=== PATIENT | female | born 1990 | race Asian ===

== ENCOUNTER → 2022-12-22 13:14 | Outpatient (CLI) | payer OTHER, SELFPAY ==
[2022-12-22 14:24] LABS: HCG Quantitative /Beta subunit 412.7 mIU/mL
== END ==
PROVIDERS: Referring Provider Obstetrics & Gynecology; Visit Provider Obstetrics & Gynecology
DX: O00.90 Unspecified ectopic pregnancy without intrauterine pregnancy (principal); N96 Recurrent pregnancy loss
CPT/HCPCS: 36415; 84144; 84702

== ENCOUNTER → 2022-12-24 14:56 | Outpatient (CLI) | payer OTHER, SELFPAY ==
[2022-12-24 16:11] LABS: HCG Quantitative /Beta subunit 921.7 mIU/mL
== END ==
PROVIDERS: Referring Provider Obstetrics & Gynecology; Visit Provider Obstetrics & Gynecology
DX: Z34.81 Encounter for supervision of other normal pregnancy, first trimester (principal); N96 Recurrent pregnancy loss
CPT/HCPCS: 36415; 84702

== ENCOUNTER → 2023-02-12 10:34 | Outpatient (CLI) | payer OTHER, SELFPAY ==
[2023-02-12 11:32] LABS: Add Manual Diff / Slide Review NO; Basophils Absolute Auto 0 /uL (0-100); Basophils Percent Auto 0.4 % (0-2); Eosinophils Absolute Auto 0 /uL (0-450); Eosinophils Percent Auto 0.5 % (2-4); Hematocrit 38.6 % (36-46); Hemoglobin 13.1 g/dL (12.0-16.0); Lymphocytes Absolute Auto 2100 /uL (1100-4500); Lymphocytes Percent Auto 26.1 % (25-40); Mean Corpuscular Hemoglobin 29.9 PG (26-34); Monocytes Absolute Auto 600 /uL (0-900); Neutrophils Absolute Auto 5400 /uL (1500-7000); Platelet Count 216 X10^3/uL (150-400); Red Blood Cell Count 4.38 X10^6/uL (4.0-5.2); White Blood Cell Count 8.2 X10^3/uL (4.5-11.0)
[2023-02-12 11:47] LABS: Alanine Aminotransferase 14 IU/L (<35); Albumin 4.4 g/dL (3.5-5.0); Albumin Globulin Ratio 1.3 (1.0-2.8); Alkaline Phosphatase 36 U/L (38-126); Aspartate Aminotransferase 18 IU/L (14-36); BUN Creatinine Ratio 14.6 (6-22); Bilirubin Total 0.4 mg/dL (0.2-1.3); Bilirubin Unconjugated 0.2 mg/dL (0.0-1.1); Blood Urea Nitrogen 6 mg/dL (7-17); Calcium 9.3 mg/dL (8.4-10.2); Carbon Dioxide 24 mmol/L (22-32); Chloride 101 mmol/L (98-107); Estimated Glomerular Filt Rate > 60 mL/min (>60); Globulin 3.5 g/dL (1.7-4.1); Glucose 80 mg/dL (70-100); HEMOLYSIS < 15 (0-50); Potassium 4.3 mmol/L (3.4-5.1); Sodium 135 mmol/L (137-145); Total Protein 7.9 g/dL (6.3-8.2)
[2023-02-12 15:55] LABS: Hep C Virus Ab w/Reflex Quant NEGATIVE s/c (NEGATIVE); Hepatitis B Surface Antigen NEGATIVE s/c (NEGATIVE)
[2023-02-12 15:56] LABS: HIV 1 & 2 Ab/Ag 4th Gen Combo NEGATIVE (NEGATIVE); Rubella Antibody IgG 23.6 IU/mL (>15)
[2023-02-13 08:36] LABS: RPR Screen Non Reactive (Non Reactive); Varicella IgG Antibody 700 index (Immune >165)
[2023-02-17 14:22] LABS: QuantiFERON Mitogen Value >10.00 IU/mL (.); QuantiFERON Nil Value 0.03 IU/mL (.); QuantiFERON TB Gold Plus Negative (Negative); QuantiFERON TB1 Ag Value 0.04 IU/mL (.); QuantiFERON TB2 Ag Value 0.03 IU/mL (.)
== END ==
PROVIDERS: Internal Medicine; Referring Provider Obstetrics & Gynecology; Visit Provider Obstetrics & Gynecology
DX: Z34.81 Encounter for supervision of other normal pregnancy, first trimester (principal); L40.0 Psoriasis vulgaris
CPT/HCPCS: 36415; 80048; 80055; 80076; 86480; 86787; 86803; 86850; 86900; 86901; 87086; 87389

== ENCOUNTER 2023-02-19 09:59 | Emergency (ER) | payer OTHER, SELFPAY ==
[2023-02-19 10:04] VITALS: BP 103/67; PULSE 74; RESP 15; TEMP 36.8; O2SAT 99; BMI 21.1
[2023-02-19] MEDS: ONDANSETRON 4 MG ODT SL (10:11)
[2023-02-19] MEDS: SODIUM CHLORIDE 0.9% 1,000 ML 1000 ML IV (12:43)
[2023-02-19 12:51] VITALS: BP 116/67; PULSE 84; RESP 18; O2SAT 99
--- NOTE | 2023-02-19 13:01 | ED_ITS ---
HPI - Nausea/Vomiting/Diarrhea General Chief complaint: Nausea/Vomiting/Diarrhea Stated complaint: throwing up for 4 hrs 13 weeks preg. Time Seen by Provider: 02/19/23 12:19 Source: patient Mode of arrival: Ambulatory History of Present Illness HPI Narrative: 32-year-old female 13 weeks presents with concern for persistent nausea and vomiting for 4 hours this morning beginning around 8:00 a.m. when she woke up. Patient states that her daughter and her have had similar symptoms recently, her daughter became sick at 3:00 a.m. 2 nights ago and said had to stay home from school but her symptoms resolved, her became sick yesterday and also had vomiting and was unwell. She was feeling fine until this morning when she woke up. She states that her has been going well, she has seen Dr. Lorenzo twice and has had a normal ultrasound recently. She states she is not having abdominal pain but is having a little bit of discomfort in the middle of her belly which she believes is associated with her nausea and the vomiting she was doing this morning. Patient states her last bowel movement was yesterday which was normal for her although she thinks that she is beginning to start getting constipation. She states she did have a few weeks of fairly significant morning sickness but this largely resolved about 1 week ago, she effectively treated this with B vitamins and Unisom. She states prior to this morning she was feeling fine denies fevers, chills, dysuria, abdominal pain, flank pain, constipation or diarrhea, also denies dizziness, lightheadedness, chest pain, palpitations or any other symptoms. Related Data Home Medications Medication Instructions Recorded Confirmed prenat.vits,rhonda,[id number] 1 tab PO DAILY 12/22/22 01/14/23 Previous Rx's Medication Instructions Recorded progesterone micronized 200 mg 200 mg PO DAILY 8 weeks #30 caps 12/22/22 capsule (Prometrium) ondansetron 4 mg disintegrating 4 mg PO Q8H PRN nausea and 02/19/23 tablet vomiting #6 tabs Allergies Allergy/AdvReac Type Severity Reaction Status Date / Time No Known Drug Allergies Allergy Verified 02/19/23 10:04 Review of Systems Review of Systems Narrative: See HPI Patient History Medical History Bacterial vaginosis Ectopic labor Prolonged labor Surgical History H/O unilateral salpingectomy [place] teeth extracted Family History Family/Other Premature delivery Mother Family estrangement Father Psoriasis Family/Other Psoriasis Grandmother Dementia Social History marital status: number of children: 1 household members: spouse and children lives independently: Yes caregiver/support person: Yes housing: house pets and animals: Yes (2 dogs) education level: college occupational status: employed current occupational exposures/hazards: No special claudia needs: No travel history: recent seatbelt use: always water heater temp set < 120 deg: Yes working smoke detector in home: Yes fire extinguisher in home: Yes carbon monox detector in home: Yes firearms in home: No do you feel safe at home: Yes Smoking Status: Never smoker second hand exposure: No alcohol intake: former substance use type: marijuana during the past year weight has: remained stable well-balanced diet: daily or most days daily servings fruits/ve or more times/day caffeine: Yes (1 cup/day) Type(s) of exercise: walking Smoking Status: Never smoker alcohol intake frequency: holidays/special occasions only Substance Use Type: does not use Exam Narrative Exam Narrative: GENERAL: 32 year old patient appears stated age. Well-developed patient, in mild distress. HEAD: Atraumatic. Normocephalic. EYES: Pupils equal round and reactive. Extraocular motions intact. No scleral icterus. No injection or drainage. ENT: Nose without bleeding, purulent drainage. Airway patent. NECK: Trachea midline. Non tender CARDIOVASCULAR: Regular rate and rhythm without murmurs, gallops, or rubs. RESPIRATORY: Clear to auscultation. Breath sounds equal bilaterally. No wheezes, rales, or rhonchi. GASTROINTESTINAL: Abdomen soft, slight discomfort with palpation over the epigastric and periumbilical region, otherwise non-tender, nondistended, negative McBurney's point tenderness, negative Rovsing, negative Ramos's sign. EXTREMITIES: No edema or joint tenderness. BACK: Nontender without deformity or crepitance. No flank tenderness. NEURO: AOx3. SKIN: No rash or erythema of visible areas Initial Vital Signs Initial Vital Signs: Vital Signs Temperature 98.2 F 02/19/23 10:04 Pulse Rate 74 02/19/23 10:04 Respiratory Rate 15 02/19/23 10:04 Blood Pressure 103/67 02/19/23 10:04 Pulse Oximetry 99 02/19/23 10:04 Oxygen Delivery Method Room Air 02/19/23 10:04 Course Course Course Narrative: Patient's heart tones were assessed by Doppler and found to be 150 beats per minute Orders Ordered: Discontinued Medications Sodium Chloride (Normal Saline 0.9%) 1,000 mls @ 1,000 mls/hr IV BOLUS ONE Stop: 02/19/23 13:34 Last Admin: 02/19/23 12:43 Dose: 1,000 mls/hr Documented By: CHARLETTE Ondansetron HCl (Ondansetron 4 Mg Odt) 4 mg SL NOW ONE Stop: 02/19/23 10:09 Last Admin: 02/19/23 10:11 Dose: 4 mg Documented By: ADAIR Vital Signs Vital signs: Vital Signs - 8 hr 02/19/23 10:04 02/19/23 12:51 02/19/23 14:20 Temperature 98.2 F Pulse Rate 74 84 79 Respiratory Rate 15 18 Blood Pressure 103/67 116/67 95/54 L Pulse Oximetry 99 99 97 Oxygen Delivery Method Room Air Room Air Room Air MDM - Nausea/Vomiting/Diarrhea Differential Diagnosis Differential diagnosis: Likely food poisoning, gastroenteritis and other (Viral illness, nausea and vomiting of ) Medical Records Attestation: I reviewed the patient's medical records. Lab Data Attestation: I reviewed the patient's lab results. 02/19/23 13:07 02/19/23 13:07 Labs: Lab Results 02/19/23 02/19/23 Range/Units 13:07 13:07 WBC 11.4 H (4.5-11.0) X10^3/uL RBC 4.23 (4.0-5.2) X10^6/uL Hgb 12.5 (12.0-16.0) g/dL Hct 37.4 (36-46) % MCV 88.4 (80-100) fL MCH 29.7 (26-34) PG MCHC 33.5 (30-36) % RDW 14.2 (11.6-14.8) % Plt Count 216 (150-400) X10^3/uL Neut % (Auto) 88.1 H (50-75) % Lymph % (Auto) 6.8 L (25-40) % [place] % (Auto) 4.4 (3-14) % Eos % (Auto) 0.4 L (2-4) % Baso % (Auto) 0.3 (0-2) % Neut # (Auto) 92439 H (7977-2651) /uL Lymph # (Auto) 800 L (8129-1257) /uL [place] # (Auto) 500 (0-900) /uL Eos # (Auto) 0 (0-450) /uL Baso # (Auto) 0 (0-100) /uL Sodium 135 L (137-145) mmol/L Potassium 3.9 (3.4-5.1) mmol/L Chloride 102 (98-107) mmol/L Carbon Dioxide 25 (22-32) mmol/L BUN 8 (7-17) mg/dL Creatinine 0.44 L (0.52-1.04) mg/dL Estimated GFR > 60 (>60) mL/min BUN/Creatinine Ratio 18.2 (6-22) Glucose 80 (70-100) mg/dL Calcium 8.4 (8.4-10.2) mg/dL Total Bilirubin 0.5 (0.2-1.3) mg/dL AST 28 (14-36) IU/L ALT 21 (<35) IU/L Alkaline Phosphatase 38 (38-126) U/L Total Protein 7.4 (6.3-8.2) g/dL Albumin 4.1 (3.5-5.0) g/dL Globulin 3.3 (1.7-4.1) g/dL Albumin/Globulin Ratio 1.2 (1.0-2.8) Treatment and disposition Shared decision making:: Shared decision-making was used in determining this patient's plan of care in the emergency department and plan for outpatient follo w-up [facility] Narrative Medical decision making narrative: Slightly fatigued-appearing 32-year-old female 13 weeks who presented with concern for 4 hours of nausea and vomiting this morning with daughter and with similar symptoms in the last 2 days. Family symptoms resolved completely, patient's symptoms only started this morning, do obtain CBC and CMP which showed no electrolyte abnormalities and a leukocytosis consistent with versus reactive to frequent recent vomiting at 11.4. Patient declines viral testing today, I think this is reasonable at is unlikely to change the course of treatment, she receives ODT Zofran while in the waiting area and receives 1 L of normal saline in the emergency department. Patient had no persistent vomiting after she received the Zofran and was generally feeling much improved, do prescribe a short course of oral Zofran for her to take as needed if she has persistent symptoms however counseled her that she should only take this if necessary, she can also try her regular medication she has been taking for nausea and vomiting (Unisom and B vitamin). She does endorse that her morning sickness largely resolved about 1 week ago. Based on exam, labs and history I am most suspicious that this is a viral illness likely the same that her and daughter had in the last 2 days. Less likely bacterial/food poisoning, or other infectious process. Exam is not suggestive of appendicitis, exam and history are not suggestive of UTI or other intra-abdominal process. Did discuss with the patient whether or not she desires further evaluation regarding her today but she is comfortable with assessing heart tones which were in the normal range of 150 beats per minute. Patient follows with Dr. Lorenzo, she is advised to follow up closely with Dr. Lorenzo-OB, monitor for new or worsening symptoms, cautious with diet over the next day or 2 until her symptoms resolve and she is feeling better. Return precautions provided, follow-up plan discussed, all questions answered. Discharge Plan Departure Patient Disposition: Home Clinical Impression: Viral gastritis, Nausea & vomiting, Instructions: Nausea and Vomiting-Adult Activity Restrictions/Additional Instructions: Thank you for letting us be part of your care today in the emergency department. We gave you fluids and antinausea medicine, which seemed to improve your sympt oms, we did check some basic labs on new and these looked fine today, your electrolytes are looking good as are your complete blood counts. I am prescribing a few doses of Zofran through a chief can take if needed over the next 24-48 hours if you have persistent nausea and vomiting. It is important for you to monitor for new or worsening symptoms I do suspect it is likely that you contracted the same virus that your daughter and son had in the last 2 days, hopefully this will resolve for you quickly but of course if you do have new symptoms developing such as fevers, diarrhea, persistent vomiting, severe or persistent abdominal pain or other symptoms of concern do not hesitate to seek re-evaluation. We did check heart tones today while you were in the emergency department and these were in the normal range at 150 beats per minute. There is no evidence of an emergent or life threatening illness at this time, but follow up with your doctor in 1-2 days is recommended nonetheless to continue to rule out serious underlying causes of your symptoms. Please call the office for an appointment. Please return to the Emergency Department for any worsening or persistent symptoms. Please take medications as directed. Prescriptions: New ondansetron 4 mg tablet,disintegrating 4 mg PO Q8H PRN (Reason: nausea and vomiting) Qty: 6 0RF No Action progesterone micronized [Prometrium] 200 mg capsule 200 mg PO DAILY 56 Days Qty: 30 1RF prenat.vits,rhonda,[id number] Tablet 1 tab PO DAILY Referrals: Jacklyn Lorenzo MD [Primary Care Provider] - Stand Alone Forms: Patient Portal/API
[2023-02-19 13:10] LABS: Add Manual Diff / Slide Review NO; Basophils Absolute Auto 0 /uL (0-100); Basophils Percent Auto 0.3 % (0-2); Eosinophils Absolute Auto 0 /uL (0-450); Eosinophils Percent Auto 0.4 % (2-4); Hematocrit 37.4 % (36-46); Hemoglobin 12.5 g/dL (12.0-16.0); Lymphocytes Absolute Auto 800 /uL (1100-4500); Lymphocytes Percent Auto 6.8 % (25-40); Mean Corpuscular HGB Conc 33.5 % (30-36); Mean Corpuscular Hemoglobin 29.7 PG (26-34); Mean Corpuscular Volume 88.4 fL (80-100); Monocytes Absolute Auto 500 /uL (0-900); Monocytes Percent Auto 4.4 % (3-14); Neutrophils Absolute Auto 10100 /uL (1500-7000); Neutrophils Percent Auto 88.1 % (50-75); Platelet Count 216 X10^3/uL (150-400); Red Blood Cell Count 4.23 X10^6/uL (4.0-5.2); Red Cell Distribution Width 14.2 % (11.6-14.8); White Blood Cell Count 11.4 X10^3/uL (4.5-11.0)
[2023-02-19 13:23] LABS: Alanine Aminotransferase 21 IU/L (<35); Albumin 4.1 g/dL (3.5-5.0); Albumin Globulin Ratio 1.2 (1.0-2.8); Alkaline Phosphatase 38 U/L (38-126); Aspartate Aminotransferase 28 IU/L (14-36); BUN Creatinine Ratio 18.2 (6-22); Bilirubin Total 0.5 mg/dL (0.2-1.3); Blood Urea Nitrogen 8 mg/dL (7-17); Calcium 8.4 mg/dL (8.4-10.2); Carbon Dioxide 25 mmol/L (22-32); Chloride 102 mmol/L (98-107); Estimated Glomerular Filt Rate > 60 mL/min (>60); Globulin 3.3 g/dL (1.7-4.1); Glucose 80 mg/dL (70-100); HEMOLYSIS < 15 (0-50); Potassium 3.9 mmol/L (3.4-5.1); Sodium 135 mmol/L (137-145); Total Protein 7.4 g/dL (6.3-8.2)
[2023-02-19 14:20] VITALS: BP 95/54; PULSE 79; O2SAT 97
== END 2023-02-19 14:20 | disposition home or self-care (01) ==
PROVIDERS: Emergency Provider Student in an Organized Health Care Education/Training Program; PCP Obstetrics & Gynecology
DX: O21.9 Vomiting of pregnancy, unspecified (principal); A08.4 Viral intestinal infection, unspecified; Z3A.13 13 weeks gestation of pregnancy
CPT/HCPCS: 36415; 80053; 85025; 96360; 96361; 99284

== ENCOUNTER → 2023-03-16 16:36 | Outpatient (CLI) | payer OTHER, SELFPAY ==
[2023-03-16 20:22] LABS: Urine N gonorrhoeae NOT DETECTED
[2023-03-16 20:27] LABS: Urine Chlamydia NOT DETECTED
[2023-03-20 22:14] LABS: AFP, Serum 22.5 ng/mL (.); Estriol, Free 0.87 ng/mL (.); Maternal Ethnicity Other (.); Maternal Weight 149 lbs (.); Number of Fetuses No (.); OSBR Risk 1 IN 10000 (.); Results Report (.); Test Results *Screen Negative* (.); hCG, MoM 1.37 (.); hCG, Serum 58057 mIU/mL (.)
== END ==
PROVIDERS: PCP Family Medicine; Referring Provider Obstetrics & Gynecology; Visit Provider Obstetrics & Gynecology
DX: Z34.82 Encounter for supervision of other normal pregnancy, second trimester (principal); Z3A.16 16 weeks gestation of pregnancy
CPT/HCPCS: 36415; 82105; 82677; 84702; 86336; 87491; 87591

== ENCOUNTER → 2023-04-13 14:11 | Outpatient (CLI) | payer OTHER, SELFPAY ==
--- NOTE | 2023-04-13 14:12 | DI.US.S_ITS ---
PROCEDURE: US OB >= 14 WEEKS FETUS INDICATIONS: anatomy scan OUTSIDE/PRIOR DATING DATA: Last menstrual period (LMP): 11/08/2022. LMP-based estimated date of delivery (JANICE): 08/15/2023. First dating scan (date and location): 01/14/2023 at [facility]. Estimated date of delivery (JANICE) from first dating scan: 08/30/2023. The calculations are made using the ultrasound JANICE of 08/30/2023. TECHNIQUE: Real-time scanning was performed of the fetus, with image documentation and biometric measurements. Endovaginal scanning: Not performed COMPARISON: [facility], US, US OB >= 14 WEEKS FETUS, 02/12/2023, 10:24. [facility], US, US OB <= 14 WEEKS FETUS, 01/14/2023, 15:14. [facility], US, US OB >= 14 WEEKS FETUS, 03/16/2023, 16:32. FINDINGS: General: A single living intrauterine gestation is present. Presentation: Breech. Placenta: Placental position is anterior , without previa. Amniotic fluid index: 13.4 cm, normal range is 5-24 cm. Single deepest vertical pocket is 4.6 cm. heart rate: 143 beats per minute. Maternal cervical canal: 3.5 cm long. Normal lower limit is 2.5 cm. biometrics: Biparietal diameter: 4.4 cm, 19 weeks 2 days Head circumference: 16.6 cm, 19 weeks 2 days Abdominal circumference: 15.6 cm, 20 weeks 5 days Femur length: 3.2 cm, 19 weeks 6 days Clinically estimated gestational age: 20 weeks 1 day Composite gestational age from present scan: 19 weeks 6 days Estimated weight and percentile: 338 g, 48th percentile Anatomic survey: Neuro: Ventricles are non-dilated at less than 10 mm. Cisterna magna is normal at 3-11 mm. Cerebellum is normal in size and morphology. Nuchal skin fold: Normal at less than 6 mm between 14-21 weeks gestational age. Face: Nose and lips, facial profile are normal. Spine: No evidence for spina bifida. Heart: 4-chambered heart is present, with normal ventricular outflow tracts. Diaphragm: Diaphragm is intact. Stomach: Left-sided stomach is present. Kidneys: No hydronephrosis. Normal is less than 5 mm in 2nd trimester, less than 7 mm in 3rd trimester. Cord: 3-vessel cord has orthotopic insertion. Bladder: Normal in size. Extremities: All 4 extremities identified. IMPRESSION: 1. Living 2nd trimester intrauterine with no sonographic evidence of complications. Current ultrasound age is concordant with clinical age based on initial 1st trimester ultrasound. 2. Normal anatomy study. We strive to produce accurate, complete, and clear reports of imaging services. To assist us in improving patient care, this report was composed using standard report templates and voice recognition software. Therefore, it may contain abnormal punctuation, insertions and/or omissions. Occasional wrong-word or sound-alike substitutions may occur. Though we review the report and make efforts to correct it, we do recommend that the report be read carefully in proper context to recognize any text inaccuracies. Dictated by: Jesus Dotson M.D. on 04/13/2023 at 15:49 Approved by: Jesus Dotson M.D. on 04/13/2023 at 15:53
== END ==
PROVIDERS: PCP Family Medicine; Referring Provider Obstetrics & Gynecology; Visit Provider Obstetrics & Gynecology
DX: Z34.82 Encounter for supervision of other normal pregnancy, second trimester (principal); Z3A.19 19 weeks gestation of pregnancy
CPT/HCPCS: 76811

== ENCOUNTER → 2023-05-13 09:31 | Outpatient (CLI) | payer OTHER, SELFPAY ==
--- NOTE | 2023-05-13 | DI.US.S_ITS ---
PROCEDURE: US ABDOMEN COMPLETE INDICATIONS: UNSPECIFIED ABDOMINAL PAIN TECHNIQUE: Real-time scanning was performed of the abdominal and retroperitoneal organs, with image documentation. COMPARISON: [facility], US, US OB >= 14 WEEKS FETUS, 04/13/2023, 14:20. FINDINGS: Liver: Liver is normal in size and homogeneous in echotexture. Hepatopetal flow in the portal vein. Gallbladder: Nondilated. No stones or sludge. Normal gallbladder wall thickness. No pericholecystic fluid. Negative sonographic Ramos's sign. Biliary ducts: Intrahepatic bile ducts are non-dilated. Extrahepatic bile duct caliber measures 4 mm. Normal is 6-7 mm or less in diameter, or 10 mm or less post-cholecystectomy. Pancreas: Visualized portions of the pancreas are sonographically normal. Spleen: Spleen is normal in size and homogeneous in echotexture. Measures 9 cm in length. Kidneys: Kidneys are normal in size and echotexture. Right kidney measures 11.4 cm long; left kidney measures 10.4 cm long. No hydronephrosis or nephrolithiasis. No solid masses. Aorta: Visualized aorta is normal in caliber at less than 3 cm. Iliacs: Not well seen. IVC: Intrahepatic inferior vena cava is patent. Miscellaneous: No free abdominal fluid. No abnormality identified in the region of left flank pain. IMPRESSION: 1. No hydronephrosis. 2. No acute cholecystitis. No gallstones. Dictated by: Luis Lutz M.D. on 05/13/2023 at 15:45 Approved by: Luis Lutz M.D. on 05/13/2023 at 15:47
== END ==
PROVIDERS: PCP Family Medicine; Referring Provider Obstetrics & Gynecology; Visit Provider Obstetrics & Gynecology
DX: R10.9 Unspecified abdominal pain (principal)
CPT/HCPCS: 76700

== ENCOUNTER → 2023-05-15 13:27 | Outpatient (CLI) | payer OTHER, SELFPAY ==
[2023-05-15 15:14] LABS: Add Manual Diff / Slide Review NO; Basophils Absolute Auto 0 /uL (0-100); Basophils Percent Auto 0.2 % (0-2); Eosinophils Absolute Auto 0 /uL (0-450); Eosinophils Percent Auto 0.3 % (2-4); Hematocrit 34.6 % (36-46); Lymphocytes Absolute Auto 1800 /uL (1100-4500); Lymphocytes Percent Auto 17.5 % (25-40); Mean Corpuscular HGB Conc 34.7 % (30-36); Mean Corpuscular Hemoglobin 30.8 PG (26-34); Mean Corpuscular Volume 88.8 fL (80-100); Monocytes Absolute Auto 700 /uL (0-900); Monocytes Percent Auto 6.7 % (3-14); Neutrophils Absolute Auto 7600 /uL (1500-7000); Neutrophils Percent Auto 75.3 % (50-75); Platelet Count 239 X10^3/uL (150-400); Red Cell Distribution Width 13.8 % (11.6-14.8); White Blood Cell Count 10.1 X10^3/uL (4.5-11.0)
[2023-05-15 16:50] LABS: GTT (PREG) 1 Hour PP 50gm Dose 142 mg/dL (76-139)
== END ==
PROVIDERS: PCP Family Medicine; Referring Provider Obstetrics & Gynecology; Visit Provider Obstetrics & Gynecology
DX: Z34.82 Encounter for supervision of other normal pregnancy, second trimester (principal); R10.11 Right upper quadrant pain; Z3A.25 25 weeks gestation of pregnancy; Z3A.26 26 weeks gestation of pregnancy
CPT/HCPCS: 36415; 82950; 85025

== ENCOUNTER 2023-05-17 20:45 | Observation (INO) | payer OTHER, SELFPAY ==
[2023-05-17 22:26] LABS: Appearance Urine UA CLEAR; Bilirubin Urine UA NEGATIVE (NEGATIVE); Color Urine UA YELLOW; Glucose Urine UA NEGATIVE (Negative); Ketones Urine UA TRACE (NEGATIVE); Leukocyte Esterase Urine UA NEGATIVE (NEGATIVE); Nitrite Urine UA NEGATIVE (Negative); Occult Blood Urine UA NEGATIVE (Negative); Protein Urine UA NEGATIVE (Negative); Urobilinogen Urine UA 0.2 E.U./dL (0.2)
[2023-05-17 22:30] LABS: pH Urine UA 6.5 (4.5-8.0)
[2023-05-17] MEDS: ACETAMINOPHEN 325 MG TABLET 650 MG PO (22:45)
[2023-05-17 23:18] LABS: Fetal Fibronectin Negative
[2023-05-17 23:36] LABS: Bacteria Urine Few (2-10); Culture Indicated Urine Cult Not Indicated; RBC Urine None Seen (0-5/HPF); Squamous Epithelial Cell Urine 1-5 /HPF (0-5/HPF); WBC Urine 0-1/HPF (0-5/HPF)
[2023-05-19 13:36] LABS: Candida species Negative (Negative); Gardnerella vaginalis Positive (Negative); Trichomoas vaginalis Negative (Negative)
== END 2023-05-18 00:48 | disposition home or self-care (01) ==
PROVIDERS: Admitting Provider Obstetrics & Gynecology; PCP Family Medicine; Referring Provider Obstetrics & Gynecology; Visit Provider Obstetrics & Gynecology
DX: O60.02 Preterm labor without delivery, second trimester (principal); Z3A.25 25 weeks gestation of pregnancy
CPT/HCPCS: 81001; 82731; 87070; 87205; 87210; 87220; 87480; 87510; 87660; G0378; G0379

== ENCOUNTER → 2023-05-22 08:07 | Outpatient (CLI) | payer OTHER, SELFPAY ==
[2023-05-22 10:12] LABS: Glucose Fasting Gestational 73 mg/dL (76-95)
[2023-05-22 10:25] LABS: Glucose 1 Hour Gest 144 mg/dL (76-180)
[2023-05-22 11:22] LABS: Glucose Tol Interp,Gestational INTERPRETATION
[2023-05-22 12:23] LABS: Glucose 3 Hour Gest 99 mg/dL (76-140)
[2023-05-22 12:56] LABS: Glucose 2 Hour Gest 95 mg/dL (76-155)
== END ==
PROVIDERS: PCP Family Medicine; Referring Provider Obstetrics & Gynecology; Visit Provider Obstetrics & Gynecology
DX: O99.810 Abnormal glucose complicating pregnancy (principal)
CPT/HCPCS: 36415; 82951; 82952

== ENCOUNTER 2023-07-07 09:19 | Observation (INO) | payer OTHER, SELFPAY ==
[2023-07-07] MEDS: NIFEdipine 10 MG CAPSULE PO ×4 (10:24→12:24)
--- NOTE | 2023-07-07 12:51 | P.TNLD_ITS ---
Visit Information Visit Information Date of evaluation: 07/07/23 Primary OB Provider: Jacklyn Lorenzo On-call OB Provider: Jacklyn Lorenzo Reason for Evaluation: Yes pre-term labor Comments/Additional reasons for admission: Patient is a 32-year-old 6 para 1 at 32-,2/7 weeks gestation who presented to labor and delivery with contractions. She had a previous delivery at 33 weeks. She is on nifedipine XL 30 once a day. Since arriving on labor and delivery she has received 3 doses of nifedipine fast acting. She is having 1 contraction about every 15-20 minutes. These are mild to palpation No leakage of fluid or vaginal bleeding [facility] Medical History (Updated 07/05/23 @ 20:31 by Jacklyn Lorenzo MD) Bacterial vaginosis Ectopic labor Prolonged labor Surgical History H/O unilateral salpingectomy [place] teeth extracted Family History Family/Other Premature delivery Mother Family estrangement Father Psoriasis Family/Other Psoriasis Grandmother Dementia Social History marital status: number of children: 1 household members: spouse and children lives independently: Yes caregiver/support person: Yes housing: house pets and animals: Yes (2 dogs) education level: college occupational status: employed current occupational exposures/hazards: No special claudia needs: No travel history: recent seatbelt use: always water heater temp set < 120 deg: Yes working smoke detector in home: Yes fire extinguisher in home: Yes carbon monox detector in home: Yes firearms in home: No do you feel safe at home: Yes Smoking Status: Never smoker second hand exposure: No alcohol intake: former substance use type: marijuana during the past year weight has: remained stable well-balanced diet: daily or most days daily servings fruits/ve or more times/day caffeine: Yes (1 cup/day) Type(s) of exercise: walking Exam Narrative Exam Narrative: Generally: Patient lying in bed, no acute distress Evaluation Evaluation Baseline heart rate: 135 Variability: Moderate (11-25) monitor accelerations: Present Monitor Decelerations: Absent Contraction Frequency (minutes): 15 Uterine Contraction Intensity: Mild Status: Category l Diagnosis, Plan/Disposition Plan/Disposition Plan: Assessment: 32-year-old 6 para 1,32-,2/7 weeks gestation with contractions Previous delivery Plan fibronectin obtained Increase nifedipine XL 32 twice a day Follow-up as scheduled next week Warning signs for labor reviewed OB Disposition: home
[2023-07-07 15:25] LABS: Fetal Fibronectin Negative
--- NOTE | 2023-07-23 23:33 | PM.CALLCOV.1 ---
Call Coverage Note Note Date of Patient Contact: 07/23/23 Time of Patient Contact: 20:40 Narrative of Care Provided: Claire called to report bleeding noted tonight on toilet paper after a brief episode of feeling faint and lying down for an hour. History of pre-term contractions and delivery at 36 weeks. Currently 35 weeks and taking 60 mg nifedipine daily for contractions. Today, contractions are approx 2-3 per hour. Baby moving normally. Wants to know if she should come in or wait to see if things worsen. Discussed options and Claire will call back to come in if bleeding increases or she has other concerns.
== END 2023-07-07 12:55 | disposition home or self-care (01) ==
PROVIDERS: Admitting Provider Obstetrics & Gynecology; PCP Family Medicine; Referring Provider Obstetrics & Gynecology; Visit Provider Obstetrics & Gynecology
DX: O60.03 Preterm labor without delivery, third trimester (principal); Z3A.32 32 weeks gestation of pregnancy
CPT/HCPCS: 59025; 59050; 82731; G0378; G0379

== ENCOUNTER → 2023-07-28 16:16 | Outpatient (CLI) | payer OTHER, SELFPAY ==
[2023-07-30 07:56] LABS: Strep Grp B PCR NEG for Grp B Strep
== END ==
PROVIDERS: PCP Family Medicine; Visit Provider Obstetrics & Gynecology
DX: Z34.83 Encounter for supervision of other normal pregnancy, third trimester (principal); Z3A.35 35 weeks gestation of pregnancy
CPT/HCPCS: 87653

== ENCOUNTER 2023-07-28 16:17 | Observation (INO) | payer OTHER, SELFPAY ==
[2023-07-28] MEDS: NIFEdipine 10 MG CAPSULE PO ×4 (17:10→18:11)
== END 2023-07-28 19:05 | disposition home or self-care (01) ==
PROVIDERS: Admitting Provider Obstetrics & Gynecology; PCP Family Medicine; Referring Provider Obstetrics & Gynecology; Visit Provider Obstetrics & Gynecology
DX: O60.03 Preterm labor without delivery, third trimester (principal); O26.23 Pregnancy care for patient with recurrent pregnancy loss, third trimester; Z3A.35 35 weeks gestation of pregnancy
CPT/HCPCS: 59025; 59050; 87653; G0378; G0379

== ENCOUNTER 2023-08-03 07:50 | Observation (INO) | payer OTHER, SELFPAY ==
[2023-08-03] MEDS: ONDANSETRON 4 MG ODT SL (08:23)
[2023-08-03] MEDS: NIFEdipine 10 MG CAPSULE PO ×3 (08:23→09:10)
[2023-08-03] MEDS: NIFEdipine 30 MG TAB ER PO (08:24)
--- NOTE | 2023-08-03 09:31 | PM.OBTRLD ---
Visit Information Visit Information Date of evaluation: 08/03/23 Primary OB Provider: Jacklyn Lorenzo On-call OB Provider: Jacklyn Lorenzo Reason for Evaluation: Yes pre-term labor Comments/Additional reasons for admission: Patient is a 33-year-old 2 para 1 at 36-,2/7 weeks gestation who awoke in the middle of the night with some contractions. She tried to ignore them initially and they continued. She took a warm bath and they persisted. She then had some nausea, vomiting, and diarrhea. She presents to labor and delivery to rule out labor. [facility] Medical History (Updated 07/17/23 @ 14:50 by Jacklyn Lorenzo MD) Bacterial vaginosis Ectopic labor Prolonged labor Surgical History H/O unilateral salpingectomy [place] teeth extracted Family History Family/Other Premature delivery Mother Family estrangement Father Psoriasis Family/Other Psoriasis Grandmother Dementia Social History marital status: number of children: 1 household members: spouse and children lives independently: Yes caregiver/support person: Yes housing: house pets and animals: Yes (2 dogs) education level: college occupational status: employed current occupational exposures/hazards: No special claudia needs: No travel history: recent seatbelt use: always water heater temp set < 120 deg: Yes working smoke detector in home: Yes fire extinguisher in home: Yes carbon monox detector in home: Yes firearms in home: No do you feel safe at home: Yes Smoking Status: Never smoker second hand exposure: No alcohol intake: former substance use type: marijuana during the past year weight has: remained stable well-balanced diet: daily or most days daily servings fruits/ve or more times/day caffeine: Yes (1 cup/day) Type(s) of exercise: walking Exam Narrative Exam Narrative: Generally: Mild distress secondary to contractions Evaluation Evaluation Baseline heart rate: 135 Variability: Moderate (11-25) monitor accelerations: Present Monitor Decelerations: Absent Contraction Frequency (minutes): 8 Uterine Contraction Intensity: Mild Status: Category l Cervical dilation (cm): 0 Cervical effacement (%): 85 station: -1 Diagnosis, Plan/Disposition Plan/Disposition Plan: Assessment: 33-year-old 2 para 1 at 36-,2/7 weeks gestation with contractions No cervical dilation Plan: IV hydration Home once patient feeling better Follow-up tomorrow for her routine visit OB Disposition: home
[2023-08-03] MEDS: LACTATED RINGERS 1,000 ML 1000 ML IV (09:50)
== END 2023-08-03 10:58 | disposition home or self-care (01) ==
PROVIDERS: Admitting Provider Obstetrics & Gynecology; PCP Family Medicine; Referring Provider Obstetrics & Gynecology; Visit Provider Obstetrics & Gynecology
DX: O47.03 False labor before 37 completed weeks of gestation, third trimester (principal); Z3A.36 36 weeks gestation of pregnancy
CPT/HCPCS: 59025; 59050; 96360; G0378; G0379

== ENCOUNTER 2023-08-14 22:59 | Outpatient (CLI) | payer OTHER, SELFPAY | END 2023-08-14 23:45 | disposition home or self-care (01) | LOC: LABOR 23:02 → OB 08-26 08:02 | PROVIDERS: PCP Family Medicine; Referring Provider Obstetrics & Gynecology; Visit Provider Obstetrics & Gynecology | DX: O60.03 Preterm labor without delivery, third trimester (principal); Z3A.36 36 weeks gestation of pregnancy | CPT/HCPCS: 59025; G0378; G0379 ==

== ENCOUNTER 2023-08-22 21:04 | Outpatient (CLI) | payer OTHER, SELFPAY ==
--- NOTE | 2023-08-23 10:14 | P.TNLD_ITS ---
Visit Information Visit Information Date of evaluation: 08/22/23 Primary OB Provider: Jacklyn Lorenzo On-call OB Provider: Pam Alcaraz Reason for Evaluation: Yes rupture of membranes Vital Signs Vital Signs: Blood pressure 107/70, temperature 36.3?, pulse 73 PFSH Medical History (Updated 08/23/23 @ 10:17 by Pam Alcaraz MD) Bacterial vaginosis Ectopic labor Prolonged labor Surgical History H/O unilateral salpingectomy [place] teeth extracted Family History Family/Other Premature delivery Mother Family estrangement Father Psoriasis Family/Other Psoriasis Grandmother Dementia Social History marital status: number of children: 1 household members: spouse and children lives independently: Yes caregiver/support person: Yes housing: house pets and animals: Yes (2 dogs) education level: college occupational status: employed current occupational exposures/hazards: No special claudia needs: No travel history: recent seatbelt use: always water heater temp set < 120 deg: Yes working smoke detector in home: Yes fire extinguisher in home: Yes carbon monox detector in home: Yes firearms in home: No do you feel safe at home: Yes Smoking Status: Never smoker second hand exposure: No alcohol intake: former substance use type: marijuana during the past year weight has: remained stable well-balanced diet: daily or most days daily servings fruits/ve or more times/day caffeine: Yes (1 cup/day) Type(s) of exercise: walking Review of Systems Review of Systems Narrative: Patient with increased fluid and fluid that soaked through her dress. Good movement. No vaginal bleeding. No regular contractions. Evaluation Evaluation Baseline heart rate: 125 Variability: Moderate (11-25) monitor accelerations: Present Monitor Decelerations: Absent Contraction Frequency (minutes): 0 Category of Tracing: Reactive Status: Category l Non-invasive Membranes Rupture Test: negative Diagnosis, Plan/Disposition Final Diagnosis (1) 38 weeks gestation of : Status: Acute (2) Vaginal discharge during in third trimester: Status: Acute Plan/Disposition Plan: Patient concerned of possible rupture membranes but AmniSure negative. Precautions reviewed. Patient is scheduled for induction in 4 days OB Disposition: home
== END 2023-08-22 22:10 | disposition home or self-care (01) ==
LOC: OB 08-26 06:16
PROVIDERS: PCP Family Medicine; Referring Provider Specialist; Visit Provider Specialist
DX: Z03.71 Encounter for suspected problem with amniotic cavity and membrane ruled out (principal); O26.893 Other specified pregnancy related conditions, third trimester; N89.8 Other specified noninflammatory disorders of vagina; Z3A.38 38 weeks gestation of pregnancy
CPT/HCPCS: 59025; 84112; G0378; G0379

== ENCOUNTER 2023-08-30 11:33 | Outpatient (CLI) | payer OTHER, SELFPAY ==
--- NOTE | 2023-08-30 11:46 | DI.US.S_ITS ---
PROCEDURE: US OB BIOPHYSICAL PROFILE INDICATIONS: DECREASED MOVEMENTS OUTSIDE/PRIOR DATING DATA: Last menstrual period (LMP): 11/08/2022. LMP-based estimated date of delivery (JANICE): 08/15/2023. First dating scan (date and location): 02/12/2023. Estimated date of delivery (JANICE) from first dating scan: 08/28/2023. The calculations are made using the clinical JANICE of 08/30/2023. TECHNIQUE: Real-time scanning was performed of the fetus for biophysical profile, with image documentation. Endovaginal scanning: Performed COMPARISON: Ever [facility], , US OB >= 14 WEEKS FETUS, 07/03/2023, 14:16. FINDINGS: General: A single living intrauterine gestation is present. Presentation: Vertex. Placenta: Placental position is anterior , without previa. Amniotic fluid index: 11.6 cm, normal range is 5-24 cm. Single deepest vertical pocket is 4.6 cm. heart rate: 155 beats per minute. Maternal cervical canal: Not assessed Clinically estimated gestational age: 1008/30/2023 Estimated gestational age from initial scan: 08/28/2023. Biophysical profile: Tone: 2 points. Movement: 2 points. Respiration: 2 points. Largest pocket of fluid: 2 points. IMPRESSION: Single live intrauterine with normal biophysical profile. We strive to produce accurate, complete, and clear reports of imaging services. To assist us in improving patient care, this report was composed using standard report templates and voice recognition software. Therefore, it may contain abnormal punctuation, insertions and/or omissions. Occasional wrong-word or sound-alike substitutions may occur. Though we review the report and make efforts to correct it, we do recommend that the report be read carefully in proper context to recognize any text inaccuracies. Dictated by: Truman Chow M.D. on 08/30/2023 at 13:06 Approved by: Truman Chow M.D. on 08/30/2023 at 13:09
== END 2023-08-30 13:06 | disposition home or self-care (01) ==
LOC: OB 09-02 12:51
PROVIDERS: PCP Family Medicine; Referring Provider Obstetrics & Gynecology; Visit Provider Obstetrics & Gynecology
DX: O36.8130 Decreased fetal movements, third trimester, not applicable or unspecified (principal); Z3A.40 40 weeks gestation of pregnancy
CPT/HCPCS: 59025; 76819; G0378; G0379

== ENCOUNTER 2023-09-01 07:12 | Inpatient (IN) | payer OTHER, SELFPAY ==
--- NOTE | 2023-09-01 08:08 | PM.OBHP.1 ---
OB HPI Date/Time Date of admission: 09/01/23 Date Patient Seen: 09/01/23 Time Patient Seen: 08:08 History of Present Condition Chief complaint: Induction, elective : 6 Para: 1 Estimated Date of Delivery: 08/30/23 Estimated Gestational Age (weeks): 40 Narrative: Claire Lobato is a 33 year old female admitted for elective induction. Indications Indication for induction OB: maternal discomfort History of Present care: good care, initiated at week # (7), number of visits (14) and pounds weight gain (37) Dating criteria: LMP confirmed by 1st trimester US Ultrasounds: normal mid trimester US Obstetrical complications: none Medical complications: none Preadmission Labs Blood type: A (+) positive -: Antibody screen: negative, GBS status: negative, HBsAG: negative, HIV: negative and RPR/VDLR: negative -: Chlamydia screen: not detected and Gonorrhea screen: not detected -: Rubella: immune and Varicella: immune HCAB: negative Quad screen: Normal 1 hr GTT: 142 3 hr GTT: 1 hr (144), 2 hr (95) and 3 hr (99) Fasting blood glucose: 73 Prior (ies) History: Ruptured left ectopic, then SAB x3 labor w/ partial abruption-> ~5 weeks bedrest on Ritodrine drip in [facility], delivered ~36 weeks. Evaluation Evaluation Baseline heart rate: 120 Variability: Moderate (11-25) monitor accelerations: Present Monitor Decelerations: Absent Contraction Frequency (minutes): 0 Category of Tracing: Reactive Status: Category l Dilation (cm): 3 Effacement (%): 80 Dilation: 3-4 cm Effacement: >/=80% station: 0 Position of cervix: posterior Consistency: soft [place] score: 9 PFSH Medical History (Updated 08/25/23 @ 12:38 by Pam Alcaraz MD) Bacterial vaginosis Ectopic labor Prolonged labor Surgical History H/O unilateral salpingectomy [place] teeth extracted Family History Family/Other Premature delivery Mother Family estrangement Father Psoriasis Family/Other Psoriasis Grandmother Dementia Social History marital status: number of children: 1 household members: spouse and children lives independently: Yes caregiver/support person: Yes housing: house pets and animals: Yes (2 dogs) education level: college occupational status: employed current occupational exposures/hazards: No special claudia needs: No travel history: recent seatbelt use: always water heater temp set < 120 deg: Yes working smoke detector in home: Yes fire extinguisher in home: Yes carbon monox detector in home: Yes firearms in home: No do you feel safe at home: Yes Smoking Status: Never smoker second hand exposure: No alcohol intake: former substance use type: marijuana during the past year weight has: remained stable well-balanced diet: daily or most days daily servings fruits/ve or more times/day caffeine: Yes (1 cup/day) Type(s) of exercise: walking Meds Home Medications and Allergies Home Medications Medication Instructions Recorded Confirmed Type prenat.vits,rhonda,pin-fekn-uoagy 1 tab PO DAILY 12/22/22 08/25/23 History breast pump (Lullaby Double #1 ea 05/18/23 08/25/23 Rx Electric Breast Pump) Allergies Allergy/AdvReac Type Severity Reaction Status Date / Time No Known Drug Allergies Allergy Verified 08/25/23 11:29 Review of Systems Review of Systems Narrative: Patient states good movement. No leakage of fluid or vaginal bleeding. No contractions. No headaches. OB Exam Vital signs Blood Pressure: 112/80 Pulse Rate: 78 Temperature: 35.9 F Narrative Exam Narrative: HEENT exam within normal limits. Lungs are clear to auscultation and percussion. Heart is regular rate and rhythm no S3-S4 murmurs. No thyromegaly. Abdomen is gravid. Fetus is vertex. Extremities without edema and nontender. Objective Labs 09/01/23 08:30 Assessment and Plan Assessment and Plan Assessment and Plan narrative: 33-year-old 6 para 1 EDC 08/30/2023 at 40 weeks 2 days here for elective induction for maternal discomfort. Austni score is 9. Will begin Pitocin.
[2023-09-01 08:43] VITALS: BP 112/80; PULSE 78; TEMP 2.2; TEMP 35.9
[2023-09-01] MEDS: LACTATED RINGERS 1,000 ML 100 ML IV ×2 (09:00→11:11)
[2023-09-01] MEDS: OXYTOCIN PREMIX 30 UNIT/500 ML PLAST..BAG IV (09:02)
[2023-09-01 09:20] LABS: Add Manual Diff / Slide Review NO; Basophils Absolute Auto 0 /uL (0-100); Basophils Percent Auto 0.4 % (0-2); Eosinophils Absolute Auto 100 /uL (0-450); Eosinophils Percent Auto 0.8 % (2-4); Hematocrit 31.9 % (36-46); Hemoglobin 10.8 g/dL (12.0-16.0); Lymphocytes Absolute Auto 1900 /uL (1100-4500); Lymphocytes Percent Auto 21.8 % (25-40); Mean Corpuscular HGB Conc 33.9 % (30-36); Mean Corpuscular Hemoglobin 28.7 PG (26-34); Mean Corpuscular Volume 84.5 fL (80-100); Monocytes Absolute Auto 700 /uL (0-900); Monocytes Percent Auto 8.5 % (3-14); Neutrophils Absolute Auto 6000 /uL (1500-7000); Neutrophils Percent Auto 68.5 % (50-75); Platelet Count 254 X10^3/uL (150-400); Red Blood Cell Count 3.77 X10^6/uL (4.0-5.2); White Blood Cell Count 8.7 X10^3/uL (4.5-11.0)
--- NOTE | 2023-09-01 11:22 | PM.AN.REGBLK ---
Regional Block Pre-procedure Procedure: Continuous Lumbar Epidural for L&D Attending OB provider: Pam Alcaraz PMH/ROS narrative: PSH/Anesthesia history narrative: Normal Exam narrative: WNL Labs: Hct 31.9 % (36-46) L 09/01/23 08:30 Plt Count 254 X10^3/uL (150-400) 09/01/23 08:30 Medications: Current Medications Generic Name Dose Route Start Last Admin Trade Name Freq PRN Reason Stop Dose Admin Calcium Carbonate 1,000 mg 09/01/23 07:22 Calcium Carbonate 500 Mg Tab PO Q4HR PRN Dyspepsia Carboprost Tromethamine 250 mcg 09/01/23 07:22 Carboprost 250 Mcg/Ml Ampul IM Q90M PRN Bleeding Diphenhydramine HCl 25 mg 09/01/23 11:21 Diphenhydramine 50 Mg/Ml Vial IV Q10M PRN Pruritis Fentanyl 50 mcg 09/01/23 07:22 Fentanyl 100 Mcg/2 Ml Inj IV Q1H PRN Pain, Moderate (4-6) Lactated Ringer's 1,000 mls @ 100 mls/hr 09/01/23 07:30 09/01/23 11:11 Lactated Ringers IV 100 mls/hr CONT TOM Administration Oxytocin/Lactated Ringer's 30 unit in 500 mls @ 200 mls/hr 09/01/23 07:22 Oxytocin Premix IV CONT PRN Bleeding Protocol Tranexamic Acid 1,000 mg/ 100 mls @ 200 mls/hr 09/01/23 07:22 Sodium Chloride IV NOW PRN Bleeding Oxytocin/Lactated Ringer's 30 unit in 500 mls @ 2 mls/hr 09/01/23 07:36 09/01/23 09:02 Oxytocin Premix IV 2 milliunit/min TITRATE TOM 2 mls/hr Administration Protocol 2 MILLIUNIT/MIN FENT 2MCG/ML BUPIV 0.1% EPI 200 mcg in 100 mls @ 12 mls/hr 09/01/23 11:30 Fentanyl/Bupiv/Ns 2mcg/Ml - 0.1% EPIDURAL CONT TOM Lidocaine HCl 20 ml 09/01/23 07:22 Lidocaine 1% 20 Ml INJ INTRA-OP PRN Post Delivery Methylergonovine Maleate 0.2 mg 09/01/23 07:22 Methylergonovine 0.2 Mg/Ml Vial IM NOW PRN Bleeding Methylergonovine Maleate 0.2 mg 09/01/23 07:22 Methylergonovine 0.2 Mg Tablet PO Q6HR PRN Heavy Bleeding Misoprostol 400 mcg 09/01/23 07:22 Misoprostol 200 Mcg Tablet SL NOW PRN Bleeding Misoprostol 800 mcg 09/01/23 07:22 Misoprostol 200 Mcg Tablet DE NOW PRN Bleeding Nalbuphine HCl 2.5 mg 09/01/23 11:21 Nalbuphine 20 Mg/Ml Ampul IV Q10M PRN Pruritis Naloxone HCl 0.2 mg 09/01/23 07:22 Naloxone 0.4 Mg/Ml Vial IV Q2MIN PRN Opiate Reversal Ondansetron HCl 4 mg 09/01/23 07:22 Ondansetron 4 Mg/2 Ml Inj IV Q4HR PRN Nausea And Vomiting Oxytocin 10 unit 09/01/23 07:22 Oxytocin 10 Unit/Ml Vial IM NOW PRN Bleeding Allergies: Allergies Allergy/AdvReac Type Severity Reaction Status Date / Time No Known Drug Allergies Allergy Verified 08/25/23 11:29 Procedure Insertion date: 09/01/23 Insertion time: 10:45 Prep/Local: betadine x3 and 1% lidocaine Interspace: L4-5 Patient position: sitting Needle: 18 gauge Georges Loss of resistance with: air TAMARA at (cm): 7 Catheter placed at SKIN (cm): 12 Catheter in SPACE (cm): 5 Initial Medications TEST DOSE time: 10:47 BOLUS DOSE time: 10:49 BOLUS DOSE (mL): 10 BOLUS DOSE med: other (Fentanyl 100mcg) Infusion Initial rate (mL/hr): 12 Post-procedure Anesthesia time START: 10:35 Anesthesia time END: 13:28 Post-procedure Anesthesia Assessment: Yes CV function: HR/BP stable, Yes Resp function: RR/sat/airway adequate, Yes Post-op hydration adequate, Yes Pain control adequate, Yes Nausea & vomiting absent, Yes Temperature > 36 C, Yes Mental status appropriate and Yes Anesthesia complications
[2023-09-01] MEDS: FENT 2MCG/ML BUPIV 0.1% EPI 200 MCG/100 ML PLAST..BAG 12 MCG EPIDURAL (11:45)
--- NOTE | 2023-09-01 13:41 | PM.OBPRVD ---
Events: Labor Induction (Maternal discomfort) Labor & Delivery Delivery date: 09/01/23 Intrapartal Events: Precipitous Labor < 3 hours Induction method: per pitocin protocol Delivery monitor: external FHT and external uterine Route of delivery: L&D Laceration Description: None Estimated blood loss (mL): 100 Anesthesia Type: Epidural [place] Baby 1: Infant gender: Male Presentation: vertex Position: Left Occiput Anterior Placenta delivery description: Spontaneous Cord Vessel Description: 3 Vessels score (1 min): 9 score (5 min): 9 weight: 7 lb 1 oz Plan for aftercare: Routine care
[2023-09-01] MEDS: IBUPROFEN 600 MG TABLET PO (17:22)
[2023-09-01] MEDS: ACETAMINOPHEN 325 MG TABLET 650 MG PO (18:31)
[2023-09-01 18:51] VITALS: BP 115/75
[2023-09-01] MEDS: OXYCODONE IR 5 MG TABLET PO (19:41)
[2023-09-02] MEDS: OXYCODONE IR 5 MG TABLET PO ×3 (01:03→10:59)
[2023-09-02] MEDS: IBUPROFEN 600 MG TABLET PO (01:03)
[2023-09-02] MEDS: ACETAMINOPHEN 325 MG TABLET 650 MG PO ×2 (02:36→10:51)
[2023-09-02 06:36] LABS: Hematocrit 28.7 % (36-46); Hemoglobin 9.8 g/dL (12.0-16.0)
[2023-09-02] MEDS: DOCUSATE 100 MG CAPSULE PO (08:10)
[2023-09-02] MEDS: FERROUS SULFATE 325 MG TABLET PO (08:10)
[2023-09-02] MEDS: PRENATAL VIT,CALC/IRON/FOLIC 1 TABLET 1 TAB PO (08:10)
--- NOTE | 2023-09-02 08:47 | P.DS_ITS ---
Discharge Providers Provider Date of admission: 09/01/23 07:12 Discharge Date: 09/02/23 Primary care physician: Linden Cabrera DO Consults: 09/01/23 07:22 Consult to Anesthesiology Urgent Comment: Consulting Provider: Anesthesiologist Reason for consultation: Epidural Has provider been notified: No 09/02/23 13:40 Consult to In Flight Crew Member Routine Comment: Discharge provider: Pam Alcaraz MD Summary Hospital Course Date Patient Seen: 09/02/23 Time Patient Seen: 08:50 Diagnoses: 40 week gestation with spontaneous vaginal delivery Hospital Course: Patient was admitted for elective induction with Pitocin. She received an epidural catheter for pain control. She had a rapid labor and had a spontaneous vaginal delivery of a viable male infant. Baby is well. She is urinating and ambulating well. She did require oxycodone to help with cramping pain with . Peripartum Data Infant Delivery Method: Natural Vaginal Laceration Description: None Procedures: Pitocin induction, epidural catheter, spontaneous vaginal delivery complications: none 1: Gender: Male Disposition of : home Discharge Diagnosis (1) Vaginal delivery: Status: Acute (2) Anemia affecting in third trimester: Status: Acute Status at Discharge Cognitive/behavioral status at discharge: oriented Functional status at discharge: independent ambulation Overall status at discharge: patient is progressing back to baseline Time Spent with Patient Time attestation: Total time spent providing and/or coordinating discharge services: Time spent: Less than 30 minutes Objective Labs 09/02/23 06:13 Labs: Laboratory Results - last 24 hr 09/01/23 09/02/23 08:30 06:13 WBC 8.7 RBC 3.77 L Hgb 10.8 L 9.8 L Hct 31.9 L 28.7 L MCV 84.5 MCH 28.7 MCHC 33.9 RDW 15.0 H Plt Count 254 Neut % (Auto) 68.5 Lymph % (Auto) 21.8 L [place] % (Auto) 8.5 Eos % (Auto) 0.8 L Baso % (Auto) 0.4 Neut # (Auto) 6000 Lymph # (Auto) 1900 [place] # (Auto) 700 Eos # (Auto) 100 Baso # (Auto) 0 Blood Type A Positive Antibody Screen Negative Exam Vital Signs (past 8 hours): Blood pressure 119/79, pulse 92, temperature 98? Narrative Exam Narrative: Abdomen is soft, nontender. Uterus is firm, U-1, nontender. Mild lochia. Perineum was intact. Extremities without edema and nontender. Discharge Plan Discharge Plan Patient Disposition: Home Discharge orders & Medications Prescriptions: New ferrous sulfate 325 mg (65 mg iron) Tablet 325 mg PO DAILY Qty: 30 0RF docusate sodium 100 mg Capsule 100 mg PO DAILY Qty: 30 0RF ibuprofen 600 mg Tablet 600 mg PO Q6HR PRN (Reason: Pain, Mild (1-3)) Qty: 20 0RF oxycodone 5 mg Tablet 5 mg PO Q4HR PRN (Reason: Pain, Moderate (4-6)) Qty: 10 0RF Continued prenat.vits,rhonda,[id number]-[id number] Tablet 1 tab PO DAILY (DME) breast pump [Lullaby Double Electric Breast] Device See Rx Instructions .Route Qty: 1 0RF Rx Instructions: As directed Follow up/Referrals: Jacklyn Lorenzo MD [Physician] - 6 Weeks Linden Cabrera, [Primary Care Provider] - Diet/Activity/Treatments Diet: Regular Activity: Nothing in vagina for 6 weeks Skin/Wound/Dressing Care Report to your healthcare provider any signs of infection, such as:: chills, fever and increased pain Visit Report/Discharge Packet Stand Alone Forms: Patient Portal/API Discharge Data Primary Care Provider: Linden Cabrera
--- NOTE | 2023-09-02 08:56 | PM.OBDS.1 ---
Discharge Providers Provider Date of admission: 09/01/23 07:12 Discharge Date: 09/02/23 Primary care physician: Linden Cabrera DO Consults: 09/01/23 07:22 Consult to Anesthesiology Urgent Comment: Consulting Provider: Anesthesiologist Reason for consultation: Epidural Has provider been notified: No 09/02/23 13:40 Consult to Hotel Reservationist Routine Comment: Discharge provider: Pam Alcaraz MD Summary Hospital Course Date Patient Seen: 09/02/23 Time Patient Seen: 08:57 Diagnoses: 40 week gestation with spontaneous vaginal delivery Hospital Course: Patient was admitted for elective induction with Pitocin. She received an epidural catheter for pain control. She had a rapid labor and had a spontaneous vaginal delivery of a viable male infant. Baby is well. She is urinating and ambulating well. She did require oxycodone to help with cramping pain with . Peripartum Data Infant Delivery Method: Natural Vaginal Laceration Description: None Procedures: Pitocin induction, epidural catheter, spontaneous vaginal delivery complications: none 1: Gender: Male Disposition of : home Discharge Diagnosis (1) Vaginal delivery: Status: Acute (2) Anemia affecting in third trimester: Status: Acute Status at Discharge Cognitive/behavioral status at discharge: oriented Functional status at discharge: independent ambulation Overall status at discharge: patient is progressing back to baseline Time Spent with Patient Time attestation: Total time spent providing and/or coordinating discharge services: Time spent: Less than 30 minutes Objective Labs 09/02/23 06:13 Labs: Laboratory Results - last 24 hr 09/01/23 09/02/23 08:30 06:13 WBC 8.7 RBC 3.77 L Hgb 10.8 L 9.8 L Hct 31.9 L 28.7 L MCV 84.5 MCH 28.7 MCHC 33.9 RDW 15.0 H Plt Count 254 Neut % (Auto) 68.5 Lymph % (Auto) 21.8 L [place] % (Auto) 8.5 Eos % (Auto) 0.8 L Baso % (Auto) 0.4 Neut # (Auto) 6000 Lymph # (Auto) 1900 [place] # (Auto) 700 Eos # (Auto) 100 Baso # (Auto) 0 Blood Type A Positive Antibody Screen Negative Exam Vital Signs (past 8 hours): Blood pressure 119/79, pulse 92, temperature 98? Narrative Exam Narrative: Abdomen is soft, nontender. Uterus is firm, U-1, nontender. Perineum is intact. Extremities without edema and nontender. Discharge Plan Discharge Plan Patient Disposition: Home Discharge orders & Medications Prescriptions: New ferrous sulfate 325 mg (65 mg iron) Tablet 325 mg PO DAILY Qty: 30 0RF docusate sodium 100 mg Capsule 100 mg PO DAILY Qty: 30 0RF ibuprofen 600 mg Tablet 600 mg PO Q6HR PRN (Reason: Pain, Mild (1-3)) Qty: 20 0RF oxycodone 5 mg Tablet 5 mg PO Q4HR PRN (Reason: Pain, Moderate (4-6)) Qty: 10 0RF Continued prenat.vits,rhonda,[id number] Tablet 1 tab PO DAILY (DME) breast pump [Lullaby Double Electric Breast] Device See Rx Instructions .Route Qty: 1 0RF Rx Instructions: As directed Follow up/Referrals: Jacklyn Lorenzo MD [Physician] - 6 Weeks Linden Cabrera, [Primary Care Provider] - Diet/Activity/Treatments Diet: Regular Activity: Nothing in vagina for 6 weeks Skin/Wound/Dressing Care Report to your healthcare provider any signs of infection, such as:: chills, fever and increased pain Visit Report/Discharge Packet Stand Alone Forms: Patient Portal/API Discharge Data Primary Care Provider: Linden Cabrera
[2023-09-02 11:12] VITALS: BP 119/79; PULSE 92; RESP 16; TEMP 36.7
== END 2023-09-02 14:00 | disposition home or self-care (01) | DRG 807 ==
PROVIDERS: Admitting Provider Specialist; PCP Family Medicine; Referring Provider Specialist; Visit Provider Specialist
DX: O76 Abnormality in fetal heart rate and rhythm complicating labor and delivery (principal); Z37.0 Single live birth; O62.3 Precipitate labor; Z3A.40 40 weeks gestation of pregnancy; O99.02 Anemia complicating childbirth; D64.89 Other specified anemias
CPT/HCPCS: 36415; 59050; 59400; 59409; 85014; 85018; 85025; 86850; 86900; 86901; G0379; J2590